=== PATIENT | female | born 1990 | race Caucasian/White ===

== ENCOUNTER 2016-11-02 14:20 | Outpatient (CLI) | payer MEDICAID | END 2016-11-02 14:21 | disposition home or self-care (01) | DX: R63.5 Abnormal weight gain (principal) ==

== ENCOUNTER 2017-01-28 10:42 | Outpatient (CLI) | payer MEDICAID | END 2017-01-28 10:43 | disposition critical access hospital (66) | DX: R45.851 Suicidal ideations (principal) | CPT/HCPCS: A0425; A0429 ==

== ENCOUNTER 2017-01-28 11:05 | Emergency (ER) | payer MEDICAID ==
--- NOTE | 2017-01-28 11:12 | ED Physician Documentation ---
PD HPI MHE - Stated complaint Stated Complaint: MHE - History obtained from History obtained from: Patient - History of Present Illness Primary symptom: Depression (has had depression since of child 8 months ago, Rx with Sertraline and increased doses as well as Seroquel for sleep. Not improved with these. Went to PCP today to see about changing meds. She has had vague suicidal ideation without specific plan. When told PCP this, they called EMS and had patient brought to ED for evaluation. She denies specific plan per se, and does not feel she would act upon any suicidal ideation as she wants to be available to care for her kids, is what she tells me in ED.) Timing - onset: How many months ago (about 8 months) Contributing factors: Family, Other (post ). No: Substance abuse - ETOH, Substance abuse - drugs Similar symptoms before: Diagnosis (post depression) Recently seen: Clinic Review of Systems Constitutional: denies: Fever Nose: denies: Rhinorrhea / runny nose, Congestion Throat: denies: Sore throat Cardiac: denies: Palpitations Respiratory: denies: Cough Skin: denies: Rash, Lesions Neurologic: reports: Generalized weakness. denies: Focal weakness, Numbness, Near syncope Psychiatric: reports: Depressed, Insomnia. 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 - Present Medications Home Medications: Ambulatory Orders Medication Instructions Recorded Confirmed Ibuprofen [Ibuprofen Ib] 800 mg PO PRN PRN #30 tab 05/31/16 08/06/16 Lorazepam [Ativan] 1 mg PO DAILY PRN #8 tablet 07/30/16 08/06/16 Sertraline HCl 100 mg PO DAILY #30 tablet 07/30/16 08/06/16 diphenhydrAMINE [Benadryl] 25 mg PO HS PRN #30 capsule 07/30/16 08/06/16 Hydrocodone/Acetaminophen [[place] 1 each PO Q6H PRN #20 tablet 08/06/16 5-325 Tablet] Lorazepam [Ativan] 1 - 2 mg PO Q8H PRN #30 tablet 08/06/16 Citalopram [CeleXA] 10 mg PO DAILY #30 tablet 01/28/17 Gabapentin [Neurontin] 100 mg PO BID #60 capsule 01/28/17 Hydrocodone/Acetaminophen [[place] 1 each PO Q6H PRN #15 tablet 01/28/17 5-325 Tablet] LORazepam [Ativan] 1 mg PO DAILY PM PRN #15 tablet 01/28/17 - Allergies Allergies/Adverse Reactions: Allergies Allergy/AdvReac Type Severity Reaction Status Date / Time No Known Drug Allergies Allergy Verified 01/28/17 11:15 - Social History Does the pt smoke?: No Smoking Status: Never smoker Does the pt drink ETOH?: No Does the pt have substance abuse?: No - Immunizations Immunizations are current?: Yes - POLST Patient has POLST: No PD ED PE NORMAL - Vitals Vital signs reviewed: Yes - General General: Alert and oriented X 3, No acute distress, Well developed/nourished - Neck Neck: Supple, no meningeal sign, No adenopathy, Thyroid normal - Cardiac Cardiac: RRR, No murmur - Respiratory Respiratory: Clear bilaterally - Derm Derm: Normal color, Warm and dry - Neuro Neuro: Alert and oriented X 3, knowledge management consultant 2-12 intact, No motor deficit, No sensory deficit, Normal speech, Other - Psych Psych: Normal mood, Normal affect Results - Vitals Vitals: Oxygen O2 Source Room air PD MEDICAL DECISION MAKING - ED course Complexity details: considered differential (having depression for about 8 months and wanting to try other meds as current ones not working as well. She has plans for future and wants to be available for kids. Denies suicidal plan to me, just some intermittent ideation. I feel she is low risk for self-harm, and is asking for help with changing meds. Will try new meds for her and then have her follow up with PCP. ), d/w patient Departure - Departure Disposition: 01 Home, Self Care Clinical Impression: depression, Myalgia Insomnia Qualifiers: Insomnia type: other insomnia Qualified Code(s): G47.09 - Other insomnia Clinical Impression: (Ruled Out): Suicidal ideation Condition: Stable Record reviewed to determine appropriate education?: Yes Instructions: ED Depression, ED Insomnia Prescriptions: LORazepam [Ativan] 1 mg PO DAILY PM PRN #15 tablet PRN Reason: Insomnia Citalopram [CeleXA] 10 mg PO DAILY #30 tablet Gabapentin [Neurontin] 100 mg PO BID #60 capsule Hydrocodone/Acetaminophen [[place] 5-325 Tablet] 1 each PO Q6H PRN #15 tablet PRN Reason: Pain Comments: Stop the Sertraline. Change to Citalopram to see if works better - start with 1/ 2 tablet daily for 6 days then to whole tablet. Start Gabapentin twice daily with help with ongoing aches and pains. Add Tylenol or Hydrocodone as needed for pains (intended short term). Lorazepam at night as needed for sleep. Drink lots of fluids. Continue with your Counselor. Call for Psychiatry appt - see referral numbers given by [employer]. Follow up with Clinic in about a week, call for appt. Discharge Date/Time: 01/28/17 12:53
[2017-01-28] MEDS ORDERED: NAPROXEN 250 MG TABLET PO STA (11:47)
[2017-01-28] MEDS ORDERED: HYDROcod/ACETAM 5/325 MG TABLET ONE (11:53)
[2017-01-28] MEDS ORDERED: NAPROXEN 250 MG TABLET PO ONE (11:54)
[2017-01-28] MEDS: HYDROcod/ACETAM 5/325 MG TABLET PO STA ×2 (11:56)
[2017-01-28 12:54] VITALS: BP 138/74
== END 2017-01-28 12:53 | disposition home or self-care (01) ==
LOC: ED 11:05
DX: F53 Mental and behavioral disorders associated with the puerperium, not elsewhere classified (principal); G47.09 Other insomnia; M79.1 Myalgia
CPT/HCPCS: 99283; 99284

== ENCOUNTER 2018-05-14 19:18 | Emergency (ER) | payer MEDICAID ==
--- NOTE | 2018-05-14 19:45 | ED Physician Documentation ---
PD HPI UPPER EXT INJURY - Stated complaint Stated Complaint: NAIL BED INJURY - Chief complaint Chief Complaint: Ext Problem - History obtained from History obtained from: Patient - History of Present Illness Location: Right, Finger (ring) Type of injury: Other (stubbed R ring finger and bent the acrylic nail backwards.) Where injury occurred: Home Timing - onset: How many hours ago (1) Timing - duration: Hours (1) Timing - details: Abrupt onset Pain level max: 5 Pain level now: 3 Improved by: Rest Worsened by: Palpating Associated symptoms: No: Weakness, Numbness, Tingling Review of Systems Neurologic: denies: Focal weakness, Numbness PD PAST MEDICAL HISTORY - Past Medical History Past Medical History: Yes Cardiovascular: None Respiratory: None Endocrine/Autoimmune: None Psych: Depression, Anxiety, Other Musculoskeletal: Chronic back pain - Past Surgical History Past Surgical History: Yes /OPERATIONS ACCOUNTANT: section - Present Medications Home Medications: Ambulatory Orders Medication Instructions Recorded Confirmed Ibuprofen [Ibuprofen Ib] 800 mg PO PRN PRN #30 tab 05/31/16 08/06/16 - Allergies Allergies/Adverse Reactions: Allergies Allergy/AdvReac Type Severity Reaction Status Date / Time No Known Drug Allergies Allergy Verified 05/14/18 19:24 - Social History Does the pt smoke?: No Smoking Status: Never smoker Does the pt drink ETOH?: No Does the pt have substance abuse?: No - Immunizations Immunizations are current?: No - POLST Patient has POLST: No PD ED PE NORMAL - Vitals Vital signs reviewed: Yes - General General: Alert and oriented X 3, No acute distress - HEENT HEENT: Moist mucous membranes - Derm Derm: Warm and dry - Extremities Extremities: Other (R 4th digit - damaged nail. dried blood. ) - Neuro Neuro: Alert and oriented X 3 Results - Vitals Vitals: Vital Signs - 24 hr 05/14/18 05/14/18 19:21 20:25 Temperature 36.4 C L 36.5 C Heart Rate 87 78 Respiratory 18 18 Rate Blood Pressure 122/85 H 111/74 O2 Saturation 100 97 Oxygen O2 Source Room air PD MEDICAL DECISION MAKING - ED course Complexity details: considered differential, d/w patient ED course: Patient is a 27-year-old female with an injury to her acrylic nail on the right ring finger. A digital trans-thecal block was performed with 2% lidocaine. Excellent anesthesia achieved. Acetone was then used to loosen the acrylic nail and it was removed. There is no damage to the underlying nail or nail wound was cleansed and bandaged. Bacitracin applied. We will have her follow- up with her doctor for further care. Tdap given. Patient counseled regarding signs and symptoms for which I believe and urgent re-evaluation would be necessary. Patient with good understanding of and agreement to plan and is comfortable going home at this time This document was made in part using voice recognition software. While efforts are made to proofread this document, sound alike and grammatical errors may occur. - Sepsis Event Vital Signs: Vital Signs - 24 hr 05/14/18 05/14/18 19:21 20:25 Temperature 36.4 C L 36.5 C Heart Rate 87 78 Respiratory 18 18 Rate Blood Pressure 122/85 H 111/74 O2 Saturation 100 97 Oxygen O2 Source Room air Departure - Departure Disposition: 01 Home, Self Care Clinical Impression: Injury by nail Qualifiers: Encounter type: initial encounter Qualified Code(s): W45.0XXA - Nail entering through skin, initial encounter Condition: Good Instructions: ED Wound Care Follow-Up: your,doctor in 3 days for wound check [Other] Comments: Return if you worsen. Keep the wound clean. Discharge Date/Time: 05/14/18 21:01
[2018-05-14] MEDS ORDERED: LIDOCAINE 2% 10 ML MDV SUBQ STA (19:49)
[2018-05-14] MEDS ORDERED: TETANUS/DIPHTHERIA/PERTUSSIS 0.5 ML SYRINGE IM ONE (19:49)
[2018-05-14 20:34] VITALS: BP 111/74
[2018-05-14] MEDS ORDERED: BACITRACIN OINT TOP STA (20:43)
[2018-05-14] MEDS ORDERED: ACETAMINOPHEN 325 MG TABLET PO STA (20:58)
== END 2018-05-14 21:01 | disposition home or self-care (01) ==
LOC: ED 19:18
DX: S69.91XA Unspecified injury of right wrist, hand and finger(s), initial encounter (principal); X50.9XXA Other and unspecified overexertion or strenuous movements or postures, initial encounter; Z23 Encounter for immunization
CPT/HCPCS: 64450; 90471; 90715; 99283; A9270

== ENCOUNTER 2020-01-29 23:56 | Emergency (ER) | payer MEDICAID, OTHER ==
--- NOTE | 2020-01-30 00:09 | ED Physician Documentation ---
PD HPI ABD PAIN - Stated complaint Stated Complaint: ABD PX - History obtained from History obtained from: Patient (The patient is a 29-year-old female presents with diffuse abdominal pain she reports she started her period 2 days ago and she thought it was just menstrual cramps however she is having Worsening diffuse abdominal pain without syncope she denies any dysuria hematuria or flank pain.She has had a previous tubal ligation.Otherwise denies any other complaints.) Review of Systems Constitutional: reports: Reviewed and negative Eyes: reports: Reviewed and negative Ears: reports: Reviewed and negative Nose: reports: Reviewed and negative Throat: reports: Reviewed and negative Cardiac: reports: Reviewed and negative Respiratory: reports: Reviewed and negative GI: reports: Abdominal Pain : reports: Reviewed and negative Skin: reports: Reviewed and negative Musculoskeletal: reports: Reviewed and negative Neurologic: reports: Reviewed and negative Psychiatric: reports: Reviewed and negative Endocrine: reports: Reviewed and negative Immunocompromised: reports: Reviewed and negative PD PAST MEDICAL HISTORY - Past Medical History Cardiovascular: None Respiratory: None Endocrine/Autoimmune: None Psych: Depression, Anxiety, Other Musculoskeletal: Chronic back pain - Past Surgical History 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 - Present Medications Home Medications: Ambulatory Orders Medication Instructions Recorded Confirmed Ibuprofen [Ibuprofen Ib] 800 mg PO PRN PRN #30 tab 05/31/16 08/06/16 Hydrocodone/Acetaminophen [[place] 1 each PO Q6HR PRN #14 tablet 01/30/20 5-325 Tablet] Ondansetron Odt [Zofran Odt] 4 mg TL Q6H PRN #10 tablet 01/30/20 - Allergies Allergies/Adverse Reactions: Allergies Allergy/AdvReac Type Severity Reaction Status Date / Time No Known Drug Allergies Allergy Verified 01/30/20 00:15 - Social History Does the pt smoke?: No Smoking Status: Never smoker Does the pt drink ETOH?: No Does the pt have substance abuse?: No - Immunizations Immunizations are current?: No - POLST Patient has POLST: No PD ED PE NORMAL - Vitals Vital signs reviewed: Yes - General General: Alert and oriented X 3, No acute distress, Well developed/nourished - HEENT HEENT: Atraumatic, PERRL, Moist mucous membranes - Neck Neck: Supple, no meningeal sign, No adenopathy - Cardiac Cardiac: RRR, No murmur, Strong equal pulses - Respiratory Respiratory: No respiratory distress, Clear bilaterally - Abdomen Abdomen: Normal bowel sounds, Soft, Non distended, Other (Diffuse tenderness to palpation throughout the abdomen there is no obvious CVA tenderness there is no midline abdominal pulsatile mass there is no ecchymosis.) - Derm Derm: Warm and dry - Extremities Extremities: No deformity - Neuro Neuro: Alert and oriented X 3 - Psych Psych: Normal mood, Normal affect Results - Vitals Vitals: Vital Signs - 24 hr 01/30/20 01/30/20 01/30/20 00:00 00:27 01:09 Temperature 36.6 C Heart Rate 96 78 83 Respiratory 20 20 20 Rate Blood Pressure 143/101 H 111/79 126/74 O2 Saturation 100 100 98 01/30/20 01/30/20 01:43 02:58 Temperature Heart Rate 89 84 Respiratory 17 19 Rate Blood Pressure 123/84 H 127/86 H O2 Saturation 96 100 Oxygen O2 Source Room air - Labs Labs: Laboratory Tests 01/30/20 01/30/20 01/30/20 00:15 00:15 00:15 WBC 6.9 RBC 4.32 Hgb 12.5 Hct 37.6 MCV 87.0 MCH 28.9 MCHC 33.2 RDW 11.9 L Plt Count 244 MPV 10.4 Neut # (Auto) 3.8 Lymph # (Auto) 2.3 Nye # (Auto) 0.5 Eos # (Auto) 0.1 Baso # (Auto) 0.1 Absolute Nucleated RBC 0.00 Nucleated RBC % 0.0 PT 11.1 INR 1.0 APTT 31.5 Sodium 136 Potassium 3.8 Chloride 105 Carbon Dioxide 25 Anion Gap 6.0 BUN 13 Creatinine 0.9 Estimated GFR (MDRD) 74 L Glucose 103 H Lactic Acid Calcium 8.8 Total Bilirubin 0.2 AST 15 ALT 15 Alkaline Phosphatase 63 CK-MB (CK-2) Total Protein 7.3 Albumin 4.0 Globulin 3.3 Albumin/Globulin Ratio 1.2 Lipase 33 Serum HCG, Qual Urine Color Urine Clarity Urine pH Ur Specific [place] Urine Protein Urine Glucose (UA) Urine Ketones Urine Occult Blood Urine Nitrite Urine Bilirubin Urine Urobilinogen Ur Leukocyte Esterase Urine RBC Urine WBC Ur Squamous Epith Cells Urine Bacteria Ur Microscopic Review Urine Culture Comments Urine HCG, Qual Urine Opiates Screen Ur Oxycodone Screen Urine Methadone Screen Ur Propoxyphene Screen Ur Barbiturates Screen Ur Tricyclics Screen Ur Phencyclidine Scrn Ur Amphetamine Screen U Methamphetamines Scrn U Benzodiazepines Scrn Urine Cocaine Screen U Cannabinoids Screen Ethyl Alcohol < 5.0 01/30/20 01/30/20 01/30/20 00:15 00:15 00:20 WBC RBC Hgb Hct MCV MCH MCHC RDW Plt Count MPV Neut # (Auto) Lymph # (Auto) Nye # (Auto) Eos # (Auto) Baso # (Auto) Absolute Nucleated RBC Nucleated RBC % PT INR APTT Sodium Potassium Chloride Carbon Dioxide Anion Gap BUN Creatinine Estimated GFR (MDRD) Glucose Lactic Acid 0.7 Calcium Total Bilirubin AST ALT Alkaline Phosphatase CK-MB (CK-2) 1.7 Total Protein Albumin Globulin Albumin/Globulin Ratio Lipase Serum HCG, Qual NEGATIVE Urine Color Urine Clarity Urine pH Ur Specific [place] Urine Protein Urine Glucose (UA) Urine Ketones Urine Occult Blood Urine Nitrite Urine Bilirubin Urine Urobilinogen Ur Leukocyte Esterase Urine RBC Urine WBC Ur Squamous Epith Cells Urine Bacteria Ur Microscopic Review Urine Culture Comments Urine HCG, Qual Urine Opiates Screen Ur Oxycodone Screen Urine Methadone Screen Ur Propoxyphene Screen Ur Barbiturates Screen Ur Tricyclics Screen Ur Phencyclidine Scrn Ur Amphetamine Screen U Methamphetamines Scrn U Benzodiazepines Scrn Urine Cocaine Screen U Cannabinoids Screen Ethyl Alcohol 01/30/20 01/30/20 02:30 02:30 WBC RBC Hgb Hct MCV MCH MCHC RDW Plt Count MPV Neut # (Auto) Lymph # (Auto) Nye # (Auto) Eos # (Auto) Baso # (Auto) Absolute Nucleated RBC Nucleated RBC % PT INR APTT Sodium Potassium Chloride Carbon Dioxide Anion Gap BUN Creatinine Estimated GFR (MDRD) Glucose Lactic Acid Calcium Total Bilirubin AST ALT Alkaline Phosphatase CK-MB (CK-2) Total Protein Albumin Globulin Albumin/Globulin Ratio Lipase Serum HCG, Qual Urine Color YELLOW Urine Clarity HAZY Urine pH 6.0 Ur Specific [place] 1.015 Urine Protein TRACE Urine Glucose (UA) NEGATIVE Urine Ketones NEGATIVE Urine Occult Blood LARGE H Urine Nitrite NEGATIVE Urine Bilirubin NEGATIVE Urine Urobilinogen 0.2 (NORMAL) Ur Leukocyte Esterase NEGATIVE Urine RBC TNTC H Urine WBC 0-3 Ur Squamous Epith Cells FEW Squamous Urine Bacteria Few Ur Microscopic Review INDICATED Urine Culture Comments NOT INDICATED Urine HCG, Qual NEGATIVE Urine Opiates Screen POSITIVE H Ur Oxycodone Screen NEGATIVE Urine Methadone Screen NEGATIVE Ur Propoxyphene Screen NEGATIVE Ur Barbiturates Screen NEGATIVE Ur Tricyclics Screen POSITIVE H Ur Phencyclidine Scrn NEGATIVE Ur Amphetamine Screen POSITIVE H U Methamphetamines Scrn NEGATIVE U Benzodiazepines Scrn NEGATIVE Urine Cocaine Screen NEGATIVE U Cannabinoids Screen NEGATIVE Ethyl Alcohol PD MEDICAL DECISION MAKING - ED course Complexity details: considered differential (Work-up is consistent with acute nephrolithiasis.) Departure - Departure Disposition: 01 Home, Self Care Clinical Impression: Kidney stone Condition: Stable Instructions: Kidney Stones Follow-Up: your, doctor [Other] - 01/30/20 Prescriptions: Hydrocodone/Acetaminophen [[place] 5-325 Tablet] 1 each PO Q6HR PRN #14 tablet PRN Reason: Pain Ondansetron Odt [Zofran Odt] 4 mg TL Q6H PRN #10 tablet PRN Reason: Nausea / Vomiting Discharge Date/Time: 01/30/20 03:05
[2020-01-30] MEDS ORDERED: SODIUM CHLORIDE 0.9% 1,000 ML IV ONE (00:13)
[2020-01-30] MEDS ORDERED: ONDANSETRON 4 MG/2 ML VIAL IVP STA (00:13)
[2020-01-30] MEDS ORDERED: MORPHINE 2 MG/ML CARPUJECT IVP STA (00:13)
[2020-01-30 00:22] LABS: BASOPHILS # (AUTO) 0.1 10^3/uL (0.0-0.1); BASOPHILS % (AUTO) 0.7 %; EOSINOPHILS # (AUTO) 0.1 10^3/uL (0.0-0.7); HGB - HEMOGLOBIN 12.5 g/dL (12.0-16.0); LYMPHOCYTES # (AUTO) 2.3 10^3/uL (1.5-3.5); LYMPHOCYTES % (AUTO) 33.4 %; MEAN CORPUSCULAR HEMOGLOBIN 28.9 pg (27.0-31.0); MEAN CORPUSCULAR HGB CONC 33.2 g/dL (32.0-36.0); MEAN PLATELET VOLUME 10.4 fL (7.9-10.8); MONOCYTES # (AUTO) 0.5 10^3/uL (0.0-1.0); MONOCYTES % (AUTO) 7.8 %; NEUTROPHILS # (AUTO) 3.8 10^3/uL (1.5-6.6); NEUTROPHILS % (AUTO) 55.8 %; PLT - PLATELET COUNT 244 10^3/uL (130-450); RED BLOOD COUNT 4.32 10^6/uL (4.20-5.40); RED CELL DISTRIBUTION WIDTH 11.9 % (12.0-15.0); WHITE BLOOD COUNT 6.9 x10^3/uL (4.8-10.8)
[2020-01-30 00:28] LABS: PT - PROTHROMBIN TIME 11.1 secs (9.9-12.6)
[2020-01-30] MEDS ORDERED: IOVERSOL 320 100 ML VIAL IVP ONE ×2 (00:29→01:55)
[2020-01-30 00:36] LABS: PARTIAL THROMBOPLASTIN TIME 31.5 secs (24.9-33.3)
[2020-01-30 00:38] LABS: ALBUMIN/GLOBULIN RATIO 1.2 (1.0-2.2); ALKALINE PHOSPHATASE 63 IU/L (42-121); ALT ALANINE AMINOTRANSFERASE 15 IU/L (10-60); AST ASPARTATE AMINOTRANSFERASE 15 IU/L (10-42); BILIRUBIN,TOTAL 0.2 mg/dL (0.2-1.0); BUN - BLOOD UREA NITROGEN 13 mg/dL (6-20); CALCIUM 8.8 mg/dL (8.5-10.3); CARBON DIOXIDE - CO2 25 mmol/L (21-32); CHLORIDE 105 mmol/L (101-111); CREATININE 0.9 mg/dL (0.4-1.0); GLUCOSE 103 mg/dL (70-100); LIPASE 33 U/L (22-51); SODIUM 136 mmol/L (135-145); TOTAL PROTEIN 7.3 g/dL (6.7-8.2)
[2020-01-30] MEDS ORDERED: HYDROmorphone 0.5 MG/0.5 ML SYRINGE IVP STA (00:43)
[2020-01-30] MEDS ORDERED: HYDROmorphone 1 MG/ML CARPUJECT ONE (00:52)
[2020-01-30] MEDS ORDERED: HYDROmorphone 2 MG/ML VIAL IVP STA (00:59)
[2020-01-30 01:40] LABS: HCG,QUALITATIVE BLOOD NEGATIVE
--- NOTE | 2020-01-30 02:22 | CT Report ---
Reason: abd pain Procedure Date: 01/30/2020 Accession Number: [id number] / [id number] Procedure: CT - Abdomen/Pelvis W CPT Code: Final Report FULL RESULT: EXAM: CT ABDOMEN AND PELVIS EXAM DATE: 01/30/2020 01:57 AM. CLINICAL HISTORY: Abd pain. COMPARISONS: ABDOMEN LIMITED US 01/04/2011 4:10 PM. TECHNIQUE: Routine helical CT imaging was performed through the abdomen and pelvis. IV contrast: Yes . Enteric contrast: No . Reconstructions: Coronal and sagittal. In accordance with CT protocol optimization, one or more of the following dose reduction techniques were utilized for this exam: automated exposure control, adjustment of mA and/or KV based on patient size, or use of iterative reconstructive technique. FINDINGS: Lung Bases: Unremarkable. Liver: Unremarkable. No suspicious masses. Gallbladder/Bile Ducts: Calcified gallstones, otherwise unremarkable. Spleen: Unremarkable. Pancreas: Unremarkable. Adrenal Glands: Unremarkable. Kidneys: Moderately obstructing 4 x 3 mm distal right ureteral stone. No suspicious masses or left hydronephrosis. Peritoneal Cavity/Bowel: No bowel obstruction or inflammatory process seen. No free air or significant free fluid. No masses or adenopathy. The appendix is normal. No excessive stool burden. Pelvic Organs: Bladder, uterus, and adnexa appear unremarkable. Vasculature: No aneurysms or other significant abnormality. Bones: No significant abnormality. Other: None. IMPRESSION: 1. Moderately obstructing 4 x 3 mm distal right ureteral stone. 2. Cholelithiasis. RADIA
[2020-01-30 02:39] LABS: MUDS CUTOFF CONCENTRATIONS CUTOFF CONC BELOW:
[2020-01-30 02:41] LABS: BILIRUBIN,URINE NEGATIVE (NEGATIVE); GLUCOSE, URINE (UA) NEGATIVE (NEGATIVE); KETONES,URINE (UA) NEGATIVE (NEGATIVE); LEUKOCYTE ESTERASE, URINE NEGATIVE (NEGATIVE); NITRITE,URINE NEGATIVE (NEGATIVE); OCCULT BLOOD,URINE LARGE (NEGATIVE); PROTEIN,URINE TRACE mg/dL (NEGATIVE); UROBILINOGEN,URINE 0.2 (NORMAL) E.U./dL (NORMAL)
[2020-01-30 02:42] LABS: CLARITY,URINE HAZY (CLEAR)
[2020-01-30 02:43] LABS: HCG UR QUAL NEGATIVE
[2020-01-30 02:47] LABS: BACTERIA,URINE Few /HPF (None Seen); RBC,URINE TNTC /HPF (0-5); SQUAMOUS EPITHELIAL CELL,UR FEW Squamous (<= Few)
[2020-01-30 02:53] LABS: AMPHETAMINE SCREEN,URINE POSITIVE (NEGATIVE); BENZODIAZEPINES SCREEN, URINE NEGATIVE (NEGATIVE); COCAINE SCREEN URINE NEGATIVE (NEGATIVE); METHADONE SCREEN, URINE NEGATIVE (NEGATIVE); METHAMPHETAMINES SCREEN, URINE NEGATIVE (NEGATIVE); OPIATE SCREEN, URINE POSITIVE (NEGATIVE); OXYCODONE SCREEN, URINE NEGATIVE (NEGATIVE); PROPOXYPHENE SCREEN, URINE NEGATIVE (NEGATIVE); TRICYCLIC ANTIDEPRESSANT,URINE POSITIVE (NEGATIVE)
[2020-01-30 02:59] VITALS: BP 127/86
== END 2020-01-30 03:05 | disposition home or self-care (01) ==
LOC: ED 23:56
DX: N20.1 Calculus of ureter (principal)
CPT/HCPCS: 36415; 74177; 80053; 80320; 81001; 81025; 82553; 83605; 83690; 84703; 85025; 85610; 85730; 96361; 96374; 96375; 99283; 99284; J1170; Q9967; 80306; 81003; 87086